=== PATIENT | female | born 1965 | race American Indian/Alaskan Native ===

== ENCOUNTER 2020-03-26 10:00 | Emergency (ER) | payer OTHER ==
[2020-03-26] MEDS ORDERED: SODIUM CHLORIDE 0.9% 1000 ML 1,000 ML IV ONE (11:27)
--- NOTE | 2020-03-26 11:33 | Event Note ---
ED Screening Note Date of service: 03/26/20 Time: 11:29 ED Screening Note: 54-year-old female presents to the ER today complaining of epigastric pain, lower abdominal pain and right-sided abdominal pain as well as lower back pain which radiates down into her right leg. Patient states that her symptoms started this past Friday. She denies any nausea, vomiting, UTI symptoms, diarrhea or constipation. She denies any bowel or bladder incontinence. She denies any chest pain or shortness of breath. She denies similar symptoms in the past. He states that she saw her GI doctor when his symptoms started, he did want her to have a CT but it has not been ordered yet. Also scheduled to farooq ve an endoscopy. She denies any abdominal surgeries. Vital signs show low-grade temp of 100. Patient is tachy at 110. She is not toxic or ill-appearing Physical exam show moderate right upper quadrant tenderness, with mild guarding but no rebound. Suprapubic tenderness. No CVA tenderness. This initial assessment/diagnostic orders/clinical plan/treatment(s) is/are subject to change based on patients health status, clinical progression and re- assessment by fellow clinical providers in the ED. Further treatment and workup at subsequent clinical providers discretion. Patient/guardian urged not to elope from the ED as their condition may be serious if not clinically assessed and managed. Initial orders include: Abdominal Pain order set which includes CBC, CMP, lipase, EKG, troponin and chest x-ray.
[2020-03-26 12:23] LABS: Alanine Aminotransferase 37 units/L (7-56); Albumin 3.9 g/dL (3.9-5); BUN/Creatinine Ratio 18; Bilirubin,Direct 0.4 mg/dL (0-0.2); Blood Urea Nitrogen 16 mg/dL (7-17); Calcium 9.1 mg/dL (8.4-10.2); Hemoglobin 12.3 gm/dl (10.1-14.3); Hemolysis Index 7; Mean Corpuscular HGB Conc 34 % (30-34); Mean Corpuscular Volume 92 fl (79-97); Platelet Count 180 K/mm3 (140-440); Red Blood Count 3.93 M/mm3 (3.65-5.03)
[2020-03-26] MEDS ORDERED: ONDANSETRON 4 MG/2 ML INJ IV ONE (12:42)
[2020-03-26] MEDS ORDERED: KETOROLAC 30 MG/1 ML INJ IV ONE (12:42)
[2020-03-26 12:43] LABS: Basophils % (Auto) 0.3 % (0.0-1.8); Eosinophils # (Auto) 0.1 K/mm3 (0.0-0.4); Eosinophils % (Auto) 0.6 % (0.0-4.3); Lymphocytes # (Auto) 1.6 K/mm3 (1.2-5.4); Lymphocytes % (Auto) 13.9 % (13.4-35.0); Monocytes # (Auto) 1.1 K/mm3 (0.0-0.8); Monocytes % (Auto) 9.9 % (0.0-7.3)
--- NOTE | 2020-03-26 12:55 | Emergency Department Report ---
<KADI GEORGE - Last Filed: 03/26/20 15:05> ED Abdominal Pain HPI - General Chief Complaint: Abdominal Pain Stated Complaint: ABD PAIN/STOMACH/LEG PAIN Time Seen by Provider: 03/26/20 12:24 Source: patient Mode of arrival: Wheelchair Limitations: No Limitations - History of Present Illness Initial Comments: 54-year-old female with a past medical history of GERD, hypertension, and no previous abdominal surgeries presents to the hospital complains of moderate to severe abdominal pain for the past 5 days. Pain is in lower abdomen, right lower quadrant, right upper quadrant, and epigastric pain. Since yesterday patient has been having right buttock pain with radiation to right thigh. Pain worse with movement and palpation. Decreased p.o. intake secondary to discomfort. Patient denies nausea, vomiting, fever, diarrhea, melena, hematochezia, dysuria, or increased urinary frequency. Patient was seen by GI doctor 3 days ago who was going to order an outpatient CT. Patient cannot wait for outpatient follow-up due to worsening pain within the last day. - Related Data Home Medications Medication Instructions Recorded Confirmed Last Taken Diclofenac Sodium [Voltaren-Xr] 100 mg PO DAILY 04/28/13 04/28/13 05/01/13 100 MG Previous Rx's Medication Instructions Recorded Last Taken Type Ciprofloxacin HCl [Ciprofloxacin 500 mg PO Q12HR 7 Days #14 tab 03/26/20 Unknown Rx TAB] metroNIDAZOLE [Flagyl TAB] 500 mg PO Q12HR 7 Days #14 tab 03/26/20 Unknown Rx Allergies Allergy/AdvReac Type Severity Reaction Status Date / Time codeine Allergy Anaphylaxis Verified 03/26/20 10:09 prochlorperazine edisylate AdvReac Unknown Verified 03/26/20 10:09 [From Compazine] prochlorperazine maleate AdvReac Unknown Verified 03/26/20 10:09 [From Compazine] ED Review of Systems Comment: All other systems reviewed and negative ED Past Medical Hx - Past Medical History Hx Hypertension: Yes Hx Congestive Heart Failure: No Hx Diabetes: No Hx GERD: Yes Hx Arthritis: Yes (RIGHT KNEE) Hx Asthma: No Hx COPD: No Hx HIV: No - Surgical History Additional Surgical History: KNEE SURGERY - Social History Smoking Status: Never Smoker Substance Use Type: Alcohol - Medications Home Medications: Home Medications Medication Instructions Recorded Confirmed Last Taken Type Diclofenac Sodium [Voltaren-Xr] 100 mg PO DAILY 04/28/13 04/28/13 05/01/13 History 100 MG Ciprofloxacin HCl [Ciprofloxacin 500 mg PO Q12HR 7 Days #14 tab 03/26/20 Unknown Rx TAB] metroNIDAZOLE [Flagyl TAB] 500 mg PO Q12HR 7 Days #14 tab 03/26/20 Unknown Rx ED Physical Exam - General Limitations: No Limitations - Other Other exam information: General: No acute distress Head: Atraumatic Eyes: normal appearance ENT: Moist mucous membranes Neck: Normal appearance, no midline tenderness Chest: Clear to auscultation bilaterally CV: Regular rate and rhythm Abdomen: Soft, normal bowel sounds, tenderness to suprapubic area, right lower quadrant, with maximal tenderness in the right upper quadrant epigastric area, nondistended, no rebound or guarding Back: Normal inspection Extremity: Normal inspection, full range of motion Neuro: Alert O x 3, no facial asymmetry, speech clear, no gross motor sensory deficit Psych: Appropriate behavior Skin: No rash ED Course - Reevaluation(s) Reevaluation #1: 03/26/20 15:05 Patient signed out to my colleague Dr. Kelly to follow-up ultrasound report, UA, and reconsult Dr. Majano - Consultations Consultation #1: 03/26/20 15:[address] Alcantara gen surgeon. US pending, Rec possible discharge on antibiotics i.e. Cipro and follow-up in the office on Friday if symptoms improving no significant ultrasound findings ED Medical Decision Making - Lab Data Result diagrams: 03/26/20 11:41 03/26/20 11:41 Critical Care Time: No ED Disposition Clinical Impression: Acute cholecystitis Disposition: DC-01 TO HOME OR SELFCARE Condition: Stable Instructions: Abdominal Pain (ED), Cholecystitis Additional Instructions: Please follow-up with general surgeon Dr. Dunlap on Friday. Prescriptions: Ciprofloxacin HCl [Ciprofloxacin TAB] 500 mg PO Q12HR 7 Days #14 tab metroNIDAZOLE [Flagyl TAB] 500 mg PO Q12HR 7 Days #14 tab Referrals: KAREN DUNLAP MD [Staff Physician] - BESSY <LETY KELLY - Last Filed: 03/26/20 17:35> ED Review of Systems ROS: Stated complaint: ABD PAIN/STOMACH/LEG PAIN Other details as noted in HPI ED Course Vital Signs 03/26/20 03/26/20 03/26/20 10:10 13:02 15:09 Temperature 100.0 F H 99.7 F H Pulse Rate 110 H 89 Respiratory 20 20 18 Rate Blood Pressure 133/84 Blood Pressure 130/79 [Right] O2 Sat by Pulse 95 97 Oximetry ED Medical Decision Making - Lab Data Result diagrams: 03/26/20 11:41 03/26/20 11:41 - Medical Decision Making Diagnosis acute cholecystitis confirmed by CT scan and ultrasound. I spoke with the general surgeon on-call . He recommended outpatient antibiotics. He will see the patient in the office on Friday. Patient is currently pain-free. I have prescribed ciprofloxacin and Flagyl Critical care attestation.: If time is entered above; I have spent that time in minutes in the direct care of this critically ill patient, excluding procedure time. ED Disposition Is pt being admited?: No Does the pt Need Aspirin: No
--- NOTE | 2020-03-26 14:00 | Cat Scan Report ---
CT abdomen pelvis w con INDICATION: MAIN. Right-sided abdominal pain TECHNIQUE: All CT scans at this location are performed using CT dose reduction for ALARA by means of automated e xposure control. COMPARISON: None available. FINDINGS: Lung bases are clear of acute disease. Liver, spleen, pancreas, kidneys and adrenals are negative. Ab dominal aorta is normal in size. No adenopathy. Gallbladder is abnormal. I cannot identify definite calculi, but the gallbladder wall is edematous an d thickened, and there is inflammation in the mesenteric fat surrounding the gallbladder. Pelvis Normal appendix. Uterus, urinary bladder and distal ureters are negative. No skeletal lesions. IMPRESSION: 1. Although no definite gallstones are identified, appearance is very consistent with acute cholecyst itis. Signer Name: Perry Muñoz MD Signed: 03/26/2020 1:55 PM Workstation Name: [id number]
[2020-03-26 15:09] VITALS: BP 130/79
[2020-03-26 15:38] LABS: Bacteria,Urine 1+ /HPF (Negative); Bilirubin,Urine NEG (Negative); Blood,Urine NEG (Negative); Color,Urine Amber (Yellow); Mucus,Urine 2+ /HPF
--- NOTE | 2020-03-26 16:14 | Ultrasound Report ---
ULTRASOUND ABDOMEN, COMPLETE INDICATION / CLINICAL INFORMATION: abnormal gallbladder. COMPARISON: CT from 03/26/2019 FINDINGS: PANCREAS: Visualized portions of the pancreas are within normal limits. ABDOMINAL AORTA: No significant abnormality. IVC: No significant abnormality. LIVER: The liver measures 16 cm in length. The liver demonstrates a normal echogenicity and morpholo gy. PORTAL VEIN: Normal hepatopedal blood flow in the main portal vein. GALLBLADDER: There is cholelithiasis with gallbladder wall thickening, measuring 5 mm. There is gallb ladder distention. Sonographic Deleon sign is reported as negative. BILE DUCTS: No significant abnormality. Common bile duct measures 5 mm. KIDNEYS: Right: No significant abnormality. Left: No significant abnormality. SPLEEN: No significant abnormality. FREE FLUID: None. ADDITIONAL FINDINGS: None. IMPRESSION: Gallbladder distention with cholelithiasis and gallbladder wall thickening. Although sonographic Murp hy sign is reportedly negative, sonographic findings remain highly concerning for acute cholecystitis . Signer Name: Justin Martinez MD Signed: 03/26/2020 4:10 PM Workstation Name: [id number]
[2020-03-26] MEDS ORDERED: levoFLOXacin 500 MG TAB PO ONE (17:36)
[2020-03-26] MEDS ORDERED: metroNIDAZOLE 500 MG TAB PO ONE (17:36)
== END 2020-03-26 17:52 | disposition home or self-care (01) ==
LOC: ED 10:00
DX: K81.0 Acute cholecystitis (principal); I10 Essential (primary) hypertension; K21.9 Gastro-esophageal reflux disease without esophagitis; M19.91 Primary osteoarthritis, unspecified site; Z98.890 Other specified postprocedural states; Z79.2 Long term (current) use of antibiotics; Z79.899 Other long term (current) drug therapy; Z88.8 Allergy status to other drugs, medicaments and biological substances
CPT/HCPCS: 36415; 74177; 76700; 80048; 80076; 81001; 83690; 84484; 84703; 85025; 96361; 96374; 96375; 99284; J1885; J2405; J7030; Q9967